=== PATIENT | female | born 1985 | race Caucasian/White ===

== ENCOUNTER → 2018-01-21 | Outpatient (CLI) | payer OTHER | LOC: LABWHC1 09:12 | PROVIDERS: ATTEND Internal Medicine Endocrinology, Diabetes & Metabolism | DX: E03.8 Other specified hypothyroidism (principal) | CPT/HCPCS: 36415; 84443 ==

== ENCOUNTER → 2024-01-10 | Outpatient (CLI) | payer BC ==
--- NOTE | 2024-01-11 10:30 | CT ---
EXAMINATION TYPE: CT iac w con DATE OF EXAM: 01/10/2024 COMPARISON: None HISTORY: TINNITUS, LEFT EAR CT DLP: 142.7 mGycm Automated exposure control for dose reduction was used. Contrast: None Technique: Axial images 1 mm thick sections. Reconstructed images in the coronal plain FINDINGS: Dental amalgam scatter artifact is present. There is some mild mucosal thickening within ethmoid air cells. Mucosal thickening is within maxillar y sinuses. Remaining paranasal sinuses within the [id number] are clear. Right septal deviation is present. Mastoid air cells are clear No expansion or erosion of the internal auditory canals is evident cerebellar pontine angles are norm al. Middle ears are clear. Incus and malleus have normal orientation. The external auditory canals ar e clear. Semicircular canals and cochlea are normal. There is a high riding right jugular bulb. The adnexa are clear. IMPRESSION: 1. UNREMARKABLE INTERNAL AUDITORY CANALS. 2. MUCOSAL THICKENING WITHIN MAXILLARY AND ETHMOID AIR CELLS.
== END | disposition home or self-care (01) ==
LOC: RADCTMAIN 17:21
PROVIDERS: ATTEND Otolaryngology
DX: H93.12 Tinnitus, left ear (principal); J34.89 Other specified disorders of nose and nasal sinuses
CPT/HCPCS: 70481; Q9967